=== PATIENT | female | born 2000 | race Hispanic/Latino ===

== ENCOUNTER 2023-09-05 10:40 | Emergency (ER) | payer OTHER ==
[~2023-09-05] VITALS: Ht 165.1 cm; Wt 88.5 kg
[2023-09-05] MEDS ORDERED: HYDROCODONE/APAP 5MG-325MG TAB PO ONE (11:30)
[2023-09-05] MEDS ORDERED: KETOROLAC TROMETHAMINE 60 MG/2 ML VIAL ONE (11:59)
[2023-09-05] MEDS ORDERED: KETOROLAC TROMETHAMINE 60 MG/2 ML VIAL IM ONE (12:00)
[2023-09-05 14:47] VITALS: BP 112/89; PULSE 77; RESP 16; TEMP 98.2; O2SAT 100
== END 2023-09-05 14:28 | disposition home or self-care (01) ==
LOC: ER 11:00
DX: M79.604 Pain in right leg (principal); S80.11XA Contusion of right lower leg, initial encounter; W01.0XXA Fall on same level from slipping, tripping and stumbling without subsequent striking against object, initial encounter; Y93.01 Activity, walking, marching and hiking; Y92.89 Other specified places as the place of occurrence of the external cause; Z89.511 Acquired absence of right leg below knee
CPT/HCPCS: 73502; 73552; 73562; 81025; 99284; J1885